=== PATIENT | male | born 1985 | race Caucasian/White ===

== ENCOUNTER 2018-11-08 04:46 | Emergency (ER) | payer OTHER ==
--- NOTE | 2018-11-08 05:43 | ER ---
Nurse's Notes [facility] Name: Devonte Flores Age: 33 yrs Sex: Male : 1985 Arrival Date: 11/08/2018 Time: 04:47 Bed 15 Private MD: Diagnosis: Infected sebaceous cysts right axilla and right groin Presentation: 11/08 04:50 Presenting complaint: Patient states: the area under my right armpit started swelling jb4 Friday, I noticed this reddened area on my right upper arm yesterday and the swelling just above my groin . 04:50 Transition of care: patient was not received from another setting of care. Onset of jb4 symptoms was November 02, 2018. Risk Assessment: Do you want to hurt yourself or someone else? Patient reports no desire to harm self or others. Initial Sepsis Screen: Does the patient meet any 2 criteria? No. Patient's initial sepsis screen is negative. Does the patient have a suspected source of infection? No. Patient's initial sepsis screen is negative. Care prior to arrival: None. 04:50 Method Of Arrival: Ambulatory jb4 04:50 Acuity: LESLEY 4 jb4 Triage Assessment: 05:53 General: Appears in no apparent distress. comfortable, Behavior is calm, cooperative, ch appropriate for age. Pain: Complains of pain in pelvis. Historical: - Allergies: 04:50 No Known Allergies; jb4 - Home Meds: 04:50 Clindamycin Oral [Active]; jb4 - PMHx: 04:50 None; jb4 - PSHx: 04:50 right ankle; jb4 - Immunization history:: Adult Immunizations up to date. - Social history:: Smoking status: Patient uses tobacco products, chewing tobacco, Patient uses alcohol, only on a social basis. - Ebola Screening: : No symptoms or risks identified at this time. Screenin:52 Abuse screen: Denies threats or abuse. Denies injuries from another. Nutritional ch screening: No deficits noted. Tuberculosis screening: No symptoms or risk factors identified. Fall Risk None identified. Assessment: 05:52 Reassessment: Patient appears in no apparent distress at this time. Patient and/or ch family updated on plan of care and expected duration. Pain level reassessed. Patient is alert, oriented x 3, equal unlabored respirations, skin warm/dry/pink. Vital Signs: 04:50 BP 119 / 73; Pulse 83; Resp 16; Temp 97.8(O); Pulse Ox 100% on R/A; Weight 90.26 kg jb4 (R); Height 69 in. (175.26 cm) (R); Pain 3/10; 05:52 BP 110 / 54; Pulse 72; Resp 16; Temp 97.8; Pulse Ox 99% on R/A; Pain 3/10; ch 04:50 Body Mass Index 29.39 (90.26 kg, 175.26 cm) jb4 ED Course: 04:47 Patient arrived in ED. am2 04:49 Domingo Fernando, RN is Primary Nurse. jb4 04:50 Arm band placed on right wrist. jb4 05:02 Triage completed. jb4 05:18 Ambrosio Ramos MD is Attending Physician. pkl 05:41 Lele Suresh MD is Referral Physician. pkl 05:52 No apparent distress. Resting quietly. ch 05:52 Patient has correct armband on for positive identification. ch 05:52 No provider procedures requiring assistance completed. Patient did not have IV access ch during this emergency room visit. Administered Medications: No medications were administered Outcome: 05:43 Discharge ordered by . pkl 05:52 Discharged to home ambulatory. ch 05:52 Condition: stable 05:52 Discharge instructions given to patient, Instructed on discharge instructions, follow up and referral plans. Demonstrated understanding of instructions, follow-up care. 05:54 Patient left the ED. Signatures: Marylu Galeana RN RN Ambrosio Ramos MD MD pkDomingo Jarrell RN RN jb4 Ghazal Kilgore am2
--- NOTE | 2018-11-08 05:43 | EDPHYS ---
Physician Documentation [facility] Name: Devonte Flores Age: 33 yrs Sex: Male : 1985 Arrival Date: 11/08/2018 Time: 04:47 Bed 15 Private MD: ED Physician Ambrosio Ramos HPI: 11/08 05:26 This 33 yrs old Male presents to ER via Ambulatory with complaints of Groin pkl Swelling, Arm Pit Swelling. 05:26 the patient presents with a swollen area of the right axilla and right groin. pkl Description: infected sebaceous cysts. Onset: The symptoms/episode began/occurred 1 week(s) ago. The patient has been recently seen at an urgent care, this week, Started on Clindamycin. Historical: - Allergies: 04:50 No Known Allergies; jb4 - Home Meds: 04:50 Clindamycin Oral [Active]; jb4 - PMHx: 04:50 None; jb4 - PSHx: 04:50 right ankle; jb4 - Immunization history:: Adult Immunizations up to date. - Social history:: Smoking status: Patient uses tobacco products, chewing tobacco, Patient uses alcohol, only on a social basis. - Ebola Screening: : No symptoms or risks identified at this time. ROS: 05:26 Eyes: Negative for injury, pain, redness, and discharge, ENT: Negative for injury, pkl pain, and discharge, Neck: Negative for injury, pain, and swelling, Cardiovascular: Negative for chest pain, palpitations, and edema, Respiratory: Negative for shortness of breath, cough, wheezing, and pleuritic chest pain, Abdomen/GI: Negative for abdominal pain, nausea, vomiting, diarrhea, and constipation, Back: Negative for injury and pain, : Negative for injury, bleeding, discharge, and swelling, MS/Extremity: Negative for injury and deformity, Neuro: Negative for headache, weakness, numbness, tingling, and seizure. 05:26 Skin: Positive for swelling, infected sebaceous cysts right axilla and right groin. 05:26 Neuro: Negative for altered mental status. Exam: 05:26 Head/Face: Normocephalic, atraumatic. Eyes: Pupils equal round and reactive to light, pkl extra-ocular motions intact. Lids and lashes normal. Conjunctiva and sclera are non-icteric and not injected. Cornea within normal limits. Periorbital areas with no swelling, redness, or edema. ENT: Nares patent. No nasal discharge, no septal abnormalities noted. Tympanic membranes are normal and external auditory canals are clear. Oropharynx with no redness, swelling, or masses, exudates, or evidence of obstruction, uvula midline. Mucous membranes moist. Neck: Trachea midline, no thyromegaly or masses palpated, and no cervical lymphadenopathy. Supple, full range of motion without nuchal rigidity, or vertebral point tenderness. No Meningismus. 05:26 Chest/axilla: Inspection: infected sebaceous cysts. 05:26 Cardiovascular: Rate: normal, Rhythm: regular. 05:26 Respiratory: the patient does not display signs of respiratory distress, Respirations: normal, Breath sounds: are clear throughout. 05:26 Abdomen/GI: Bowel sounds: normal, Palpation: abdomen is soft and non-tender, in all quadrants. 05:26 Back: Exam negative for acute changes. 05:26 : Exam negative for acute changes. 05:26 Musculoskeletal/extremity: Exam is negative for acute changes. 05:26 Skin: infected sebaceous right groin. 05:26 Neuro: Orientation: is normal, Mentation: is normal, Cranial nerves: grossly normal, Motor: is normal. Vital Signs: 04:50 BP 119 / 73; Pulse 83; Resp 16; Temp 97.8(O); Pulse Ox 100% on R/A; Weight 90.26 kg jb4 (R); Height 69 in. (175.26 cm) (R); Pain 3/10; 05:52 BP 110 / 54; Pulse 72; Resp 16; Temp 97.8; Pulse Ox 99% on R/A; Pain 3/10; ch 04:50 Body Mass Index 29.39 (90.26 kg, 175.26 cm) jb4 MDM: 05:18 Patient medically screened. [facility] 05:26 Data reviewed: vital signs, nurses notes. ED course: Discussed clinical impression with [facility] patient. Infected sebaceous cysts not ready for I and D. Advised to continue taking Clindamycin and follow up with Dr. Suresh ( General Surgeon ) in 2 to 3 days. Patient under instructions. Administered Medications: No medications were administered Disposition: 11/08/18 05:43 Discharged to Home. Impression: Infected sebaceous cysts right axilla and right groin. - Condition is Stable. - Medication Reconciliation Form, Thank You Letter, Antibiotic Education, Prescription Opioid Use form. - Follow up: Lele Suresh MD; When: 2 - 3 days; Reason: Re-evaluation by your physician. - Problem is new. - Symptoms are unchanged. Signatures: Marylu Galeana, RN RN Ambrosio Ramos MD MD pkl Domingo Fernando RN RN jb4 Corrections: (The following items were deleted from the chart) 05:54 05:43 11/08/2018 05:43 Discharged to Home. Impression: Infected sebaceous cysts right ch axilla and right groin. Condition is Stable. Forms are Medication Reconciliation Form, Thank You Letter, Antibiotic Education, Prescription Opioid Use. Follow up: Lele Suresh; When: 2 - 3 days; Reason: Re-evaluation by your physician. Problem is new. Symptoms are unchanged. pkl
== END 2018-11-08 05:54 | disposition home or self-care (01) ==
LOC: ER 04:46
DX: L72.3 Sebaceous cyst (principal); Z72.0 Tobacco use
CPT/HCPCS: 99281

== ENCOUNTER 2023-07-27 15:52 | Inpatient (IN) | payer OTHER ==
[2023-07-27] MEDS: HYDROMORPHONE HCL 2 MG/ML inj ONE (15:50)
[2023-07-27] MEDS ORDERED: ROCURONIUM 50 MG/5 ML VIAL IV ONE (16:29)
[2023-07-27] MEDS ORDERED: FENTANYL CITR 100 MCG/2 ML ONE (16:29)
[2023-07-27] MEDS ORDERED: MIDAZOLAM HCL 2 MG/2 ML INJ ONE (16:29)
[2023-07-27] MEDS ORDERED: propofoL 200 MG/20 ML VIAL IV ONE (16:29)
[2023-07-27] MEDS ORDERED: KETOROLAC 30 MG/ML INJ ONE (16:30)
[2023-07-27] MEDS ORDERED: dexAMETHasone 4 MG/ML VIAL ONE (16:30)
[2023-07-27] MEDS ORDERED: LIDOCAINE 1% MPF 5 ML VIAL ONE (16:30)
[2023-07-27] MEDS ORDERED: ONDANSETRON 4 MG/2 ML VIAL ONE (16:30)
[2023-07-27] MEDS ORDERED: GLYCOPYRROLATE 0.2 MG/ML SYR ONE (16:30)
[2023-07-27] MEDS ORDERED: NEOSTIGMINE 1 MG/ML -10 ML VIAL ONE (16:30)
[2023-07-27 16:33] VITALS: BMI 32.5
[2023-07-27] MEDS: Ringers Lactate 1,000 ML IV ONE (16:50)
--- NOTE | 2023-07-27 17:37 | P.HP ---
Date of Service: 07/27/23 PC: This 38-year-old male presented to a local emergency room with abdominal pain for diagnosis and treatment. HPC: Patient has been experiencing right lower quadrant abdominal pain for the last month or so. Thought it was a muscle strain. However today when he woke up the pain was severe, he could hardly move, hurts when he walks or moves around. No appetite today. PSHx: Negative PMHx: Has atrial fibrillation, was on medication but cannot afford it. Social Hx: Allergic to penicillins Sys R: No cough, wheeze, shortness of breath. No chest pain or palpitations. Denies any urinary complaints. Good exercise tolerance O/E: Awake alert vital signs are stable HEENT: Not jaundiced Chest: Chest movement equal bilaterally Abd: Has guarding and rebound in the right lower quadrant [place]: Intact Data: CT scan suggests appendicitis, white cell count not elevated Impression: Acute abdomen, probable appendicitis Plan: I will taken to the operating room for laparoscopic appendectomy. The risks of this procedure have been discussed. The possibility of bleeding, infection, injury to bowel blood vessels and associated structures were explained. The possible need for an open and or further surgeries and procedures were outlined. He understands and wants us to proceed.
[2023-07-27] MEDS: BUPIVACAINE 0.5% PF 10 ML VIAL ONE (18:03)
--- NOTE | 2023-07-27 18:45 | P.OP ---
Preoperative diagnosis: Acute abdomen Postoperative diagnosis: Acute appendicitis Primary procedure: Laparoscopic appendectomy Secondary procedure: Kajal block Anesthesia: General Estimated blood loss: Less than 10 cc Specimen: 1 specimen Operative Technique: The patient brought the operating room and placed supine on the table. After the induction of adequate general endotracheal anesthesia, the area of the abdomen was prepped with a DuraPrep solution, he was draped in the usual aseptic manner. A subumbilical incision was made. This was brought down through the skin and subcutaneous tissue. The Visiport was used to enter the peritoneal cavity and created pneumoperitoneum to approximately 11 mmHg. Under direct vision a 5 mm trocar was placed in the lower midline, and another 5 on the right lateral side of the abdomen. With the patient placed in Trendelenburg and the table tilted to the left we were able to visualize the right lower quadrant. Against the right lateral sidewall we could see the tip of the appendix. Part of the body of the appendix was in the retroperitoneum laying parallel to the terminal ileum. These peritoneal attachments were opened. This allowed us to mobilize the appendix. It was taken off of the distal ileum. We could see that there is an acute inflammatory and process involving the appendix. A window was made in the mesentery of the appendix. The linear stapler was placed across the base of the appendix. We could not get a good shot on the appendix due to the fact it was almost retracted into the cecum itself. It was being held by the vasculature. Hence we converted to the vascular stapler. The vasculature of the appendix was taken down using the linear stapler. Having done this this freed the appendix considerably. By applying gentle traction we could not clearly identify the base of the appendix with the cecum. A linear stapler was now placed across the cecum just at the base of the appendix. The instrument was fired. The appendix having been detached was now placed into an Endo Catch. The specimen was now brought out through the umbilical trocar site. Attention was turned back towards the operative site. The area was irrigated with a copious amount of a saline solution. The irrigating fluid was aspirated from the peritoneal cavity. A tap block was done with 0.25% Marcaine. Attention was turned towards the right and left lower quadrants. On the left side we cannot adequately see the inguinal orifices due to the fact that the sigmoid is stuck over that area. I do not want to dissect this out as the CT scan shows an apparent hernia on that side, but at the moment appears to be well covered with the sigmoid colon. At this point the umbilical trocar site was approximated with 2 absorbable sutures placed using the Endo Close. The pneumoperitoneum was collapsed, the sutures tied, and peterson applied to the skin. At the end of the procedure he was in a stable condition was sent to the recovery room. Needle sponge instrument count were correct. No drains were placed. Complications: None Transferred to: Recovery Room Condition: Good
[2023-07-27] MEDS: NA CIT/CITRIC AC 30 ML ORAL UDC ONE (18:50)
[2023-07-27] MEDS: Ringers Lactate 1,000 ML IV SCH (19:00)
[2023-07-27 19:01] VITALS: O2SAT 100
[2023-07-27] MEDS: MEPERIDINE HCL 25 MG/ML SYR ONE (19:05)
[2023-07-27] MEDS: FENTANYL CITR 100 MCG/2 ML ONE (19:10)
[2023-07-27] MEDS: HYDROCODONE/APAP 7.5/325 MG TAB PO PRN (20:22)
[2023-07-27] MEDS: MORPHINE 4 MG/ML SYR IV PRN (22:44)
[2023-07-27] MEDS: ONDANSETRON 4 MG/2 ML VIAL IV PRN (22:44)
[2023-07-28] MEDS: ZOLPIDEM TARTRATE 10 MG TABLET PO ONE (00:59)
[2023-07-28 11:41] VITALS: BP 134/73; TEMP 97.9
== END 2023-07-28 13:49 | disposition home or self-care (01) | DRG 399 ==
LOC: 4TH 15:52
PROVIDERS: ADMIT Surgery; ATTEND Surgery
PROC: 0DTJ4ZZ Resection of Appendix, Percutaneous Endoscopic Approach (ICD-10-PCS; principal; 2023-07-27 17:30)
DX: K35.80 Unspecified acute appendicitis (principal); I48.91 Unspecified atrial fibrillation; Z88.0 Allergy status to penicillin
CPT/HCPCS: 88304; 94010; J1100; J1170; J2001; J2175; J2250; J2405; J2704; J2710; J3010; J7120